=== PATIENT | female | born 1960 | race African-American/Black ===

== ENCOUNTER 2018-11-19 17:56 | Emergency (ER) | payer OTHER ==
[~2018-11-19] VITALS: Ht 162.6 cm; Wt 59.0 kg
[2018-11-19] MEDS ORDERED: ANTIVERT25 MG PO (19:21)
[2018-11-19] MEDS ORDERED: ZOFRAN ODT4 MG PO (19:21)
[2018-11-19 20:39] VITALS: BP 136/76
== END 2018-11-19 20:39 | disposition home or self-care (01) ==
LOC: ER 17:56
DX: R42 Dizziness and giddiness (principal); H92.02 Otalgia, left ear; I10 Essential (primary) hypertension

== ENCOUNTER 2020-12-13 09:01 | Emergency (ER) | payer OTHER ==
[~2020-12-13] VITALS: Ht 165.1 cm; Wt 61.2 kg
[~2020-12-13 09:01] MED LIST: ANTIVERT25 MG PO; ZOFRAN ODT4 MG PO
[2020-12-13] MEDS ORDERED: NORVASC10 MG PO (09:27)
[2020-12-13 09:40] LABS: BE(vivo) -0.3 mmol/L (-2 to +3); HCO3 23.6 mmol/L (22.0-26.0); PCO2 36.4 mmHg (35.0-45.0); PO2 92.9 mmHg (80.0-100.0); sO2 97.3 % (92.0-98.0)
[2020-12-13 11:49] LABS: HEMATOCRIT 44.2 % (37.0-47.0); HEMOGLOBIN 14.3 gm/dL (12.0-15.0); MCH 26.4 pg (26.0-34.0); MCHC 32.3 g/dL (28.0-37.0); MCV 81.6 fL (80.0-100.0); PLATELET COUNT 356 thou/uL (150-400); RBC 5.41 mil/uL (4.20-5.00); RDW 15.6 % (10.5-14.5); WBC 4.5 thou/uL (4.0-11.0)
[2020-12-13 11:50] LABS: CALCIUM 8.8 mg/dL (8.5-10.1); CREATININE 0.7 mg/dL (0.6-1.0)
--- NOTE | 2020-12-13 12:17 | EKG ---
[address] [address] ELECTROCARDIOGRAM REPORT Name: OMID EDWARDS Room #: REG ERICKA Rivera#: [id number] Admission: 12/13/20 Attend Phys: Discharge: Date of : 58 Report #: [id number] [facility] ED Test Date: 2020-12-13 Test Time: 10:45:35 Pat Name: OMID EDWARDS Department: Room: Gender: F [employer]: shade : 1960 Requested By: Catarino Coello Order Number: [id number] MD: Cassius Wood Measurements Intervals [place] Rate: 60 P: 14 [place]: 180 QRS: 30 QRSD: 84 T: 38 QT: 419 QTc: 419 Interpretive Statements Sinus rhythm No previous ECG available for comparison Electronically Signed On 12-13-2020 12:17:50 CDT by Cassius Wood [email or web address] <ELECTRONICALLY SIGNED> By: Cassius Wood MD, [facility] 12/13/20 1217 1045 1045 Cassius Wood MD, FACC /EPI
[2020-12-13 12:25] LABS: BE(vivo) -0.5 mmol/L (-2 to +3); HCO3 24.3 mmol/L (22.0-26.0); PCO2 40.7 mmHg (35.0-45.0); PO2 302.9 mmHg (80.0-100.0); pH 7.394 (7.360-7.450); sO2 99.7 % (92.0-98.0)
[2020-12-13 13:11] LABS: ABSOLUTE NEUTROPHILS 1.3 thou/uL (1.4-8.2)
[2020-12-13 13:36] VITALS: BP 117/68
== END 2020-12-13 13:36 | disposition home or self-care (01) ==
LOC: ER 09:01
PROVIDERS: Emergency Medicine
DX: T75.89XA Other specified effects of external causes, initial encounter (principal); I10 Essential (primary) hypertension; Z88.5 Allergy status to narcotic agent; X58.XXXA Exposure to other specified factors, initial encounter; Y93.89 Activity, other specified; Y92.038 Other place in apartment as the place of occurrence of the external cause; Y99.8 Other external cause status

== ENCOUNTER 2021-01-22 12:18 | Emergency (ER) | payer OTHER ==
[~2021-01-22] VITALS: Ht 167.6 cm; Wt 61.2 kg
[~2021-01-22 12:18] MED LIST changes: +NORVASC10 MG PO
[2021-01-22 13:36] LABS: ABSOLUTE NEUTROPHILS 1.5 thou/uL (1.4-8.2); BASOPHILS 0.8 % (0.0-2.0); HEMATOCRIT 41.6 % (37.0-47.0); HEMOGLOBIN 13.6 gm/dL (12.0-15.0); LYMPHOCYTES 57.8 % (24.0-44.0); MCH 26.9 pg (26.0-34.0); MCHC 32.8 g/dL (28.0-37.0); MCV 81.8 fL (80.0-100.0); MONOCYTES 10.2 % (1.0-8.0); PLATELET COUNT 332 thou/uL (150-400); POLYS 30.2 % (36.0-66.0); RBC 5.08 mil/uL (4.20-5.00); RDW 15.6 % (10.5-14.5); WBC 5.1 thou/uL (4.0-11.0)
[2021-01-22 13:37] LABS: BE(vivo) 0.5 mmol/L (-2 to +3); HCO3 24.8 mmol/L (22.0-26.0); PO2 86.8 mmHg (80.0-100.0); pH 7.421 (7.360-7.450); sO2 96.8 % (92.0-98.0)
[2021-01-22 13:53] VITALS: BP 108/63
[2021-01-22] MEDS ORDERED: ZOFRAN ODT4 MG PO (13:53)
[2021-01-22 13:55] LABS: CALCIUM 9.1 mg/dL (8.5-10.1); CREATININE 0.8 mg/dL (0.6-1.0); POTASSIUM 3.7 mmol/L (3.5-5.1)
[2021-01-22 13:59] LABS: ALBUMIN 3.8 g/dL (3.4-5.0); TOTAL BILIRUBIN 0.2 mg/dL (0.2-1.0); TOTAL PROTEIN 7.7 g/dL (6.4-8.2)
== END 2021-01-22 13:53 | disposition home or self-care (01) ==
LOC: ER 12:18
PROVIDERS: Emergency Medicine
DX: R11.0 Nausea (principal); I10 Essential (primary) hypertension; R51.9 Headache, unspecified; Z88.5 Allergy status to narcotic agent

== ENCOUNTER 2021-01-25 21:20 | Emergency (ER) | payer OTHER ==
[~2021-01-25] VITALS: Ht 167.6 cm; Wt 61.2 kg
[2021-01-25 21:23] VITALS: BP 145/89
[2021-01-25 22:05] LABS: BE(vivo) 0.1 mmol/L (-2 to +3); PCO2 36.5 mmHg (35.0-45.0); PO2 94.5 mmHg (80.0-100.0); pH 7.436 (7.360-7.450); sO2 97.5 % (92.0-98.0)
== END 2021-01-25 22:30 | disposition home or self-care (01) ==
LOC: ER 21:20
PROVIDERS: Emergency Medicine
DX: R51.9 Headache, unspecified (principal); Z57.5 Occupational exposure to toxic agents in other industries; I10 Essential (primary) hypertension; Z79.899 Other long term (current) drug therapy; Z88.6 Allergy status to analgesic agent